=== PATIENT | male | born 1945 | race Caucasian/White ===

== ENCOUNTER 2023-03-07 14:30 | Inpatient (IN) | payer MEDICARE ==
[2023-03-07 15:17] LABS: BASO % 0.3 % (0.0-1.0); EOS % 0.1 % (0.0-3.0); HEMATOCRIT 39.5 % (42.0-52.0); HEMOGLOBIN 13.4 g/dl (13.5-17.5); LYMPH # 0.4 10^3/uL (1.5-5.0); LYMPH % 6.2 % (24.0-44.0); MEAN CORPUSCULAR HEMOGLOBIN 33.1 pg (27.0-33.0); MEAN CORPUSCULAR HGB CONC 33.9 g/dl (32.0-36.5); MEAN CORPUSCULAR VOLUME 97.5 fl (80.0-96.0); MONO # 0.6 10^3/uL (0.0-0.8); MONO % 8.7 % (2.0-8.0); NEUTROPHILS % 84.3 % (36.0-66.0); PLATELET COUNT, AUTOMATED 200 10^3/uL (150-450); RED BLOOD COUNT 4.05 10^6/uL (4.30-6.10); WHITE BLOOD COUNT 7.2 10^3/uL (4.0-10.0)
[2023-03-07] MEDS ORDERED: ISOVUE-370 76% 100ML VIAL As Ordered ONE (15:19)
[2023-03-07 15:25] VITALS: BP 141/67
[2023-03-07 15:46] LABS: CK-MB VALUE MASS < 1.0 NG/ML (<3.6); ETHYL ALCOHOL (ETHANOL) < 0.003 % (0.000-0.010)
[2023-03-07 15:48] LABS: ALBUMIN 3.5 G/DL (3.2-5.2); ALKALINE PHOSPHATASE 81 U/L (46-116); ALT/SGPT 16 U/L (7.0-40); AST/SGOT 19 U/L (<34); BILIRUBIN,DIRECT 0.3 MG/DL (<0.4); BILIRUBIN,TOTAL 0.7 MG/DL (0.3-1.2); BLOOD UREA NITROGEN 24 MG/DL (9-23); CALCIUM LEVEL 8.5 MG/DL (8.3-10.6); CARBON DIOXIDE LEVEL 28 MMOL/L (20-31); CHLORIDE LEVEL 105 MMOL/L (98-107); CPK CREATINE PHOSPHOKINASE 88 U/L (46-171); CREATININE FOR GFR 1.02 MG/DL (0.70-1.30); GLOMERULAR FILTRATION RATE > 60.0 (>42); GLUCOSE, FASTING 165 MG/DL (74-106); MB/CK RELATIVE INDEX 1.13 (< OR =4); SODIUM LEVEL 137 MMOL/L (136-145); TOTAL PROTEIN 6.4 G/DL (5.7-8.2)
[2023-03-07 15:49] LABS: RSV AMPLIFICATION NEGATIVE (NEGATIVE)
[2023-03-07 15:50] LABS: THYROID STIMULATING HORMONE 1.526 uIU/ML (0.55-4.78)
[2023-03-07] MEDS ORDERED: LIDOCAINE 2% 5ML JELLY UROJET TOP ONE (15:50)
[2023-03-07] MEDS ORDERED: ACETAMINOPHEN TAB 650MG DOSE (2X325MG) PO PRN (16:30)
[2023-03-07] MEDS ORDERED: PROMETHAZINE 25MG/ML 1ML VIAL IV PRN (16:30)
[2023-03-07] MEDS ORDERED: SENOKOT S TAB PO PRN (16:30)
[2023-03-07] MEDS ORDERED: MOM 30ML SUSPENSION UDC PO PRN (16:30)
[2023-03-07] MEDS ORDERED: MIRALAX *UNIT DOSE* 17GM PACKET PO PRN (16:30)
[2023-03-07 16:55] LABS: ABG HCO3 23.4 MMOL/L (22.0-26.0); ABG O2 SATURATION 91.5 % (95.0-99.0); ABG PARTIAL PRESSURE CO2 34.4 mmHg (35.0-45.0); ABG PARTIAL PRESSURE O2 59.8 mmHg (75.0-100.0); ABG STANDARD HCO3 24.3 MMOL/L. (22.0-26.0); ABG TOTAL CO2 24.4 MMOL/L (23.0-31.0)
[2023-03-07] MEDS ORDERED: LORazepam 2 MG/ML 1ML VIAL IV STA (17:42)
[2023-03-07] MEDS ORDERED: METF850T4 PO (18:27)
[2023-03-07] MEDS ORDERED: TEST200I14 IM (18:27)
[2023-03-07] MEDS ORDERED: ALLO100T PO (18:27)
[2023-03-07] MEDS ORDERED: LISI5TAB11 PO (18:27)
[2023-03-07] MEDS ORDERED: SITA50TAB PO (18:27)
[2023-03-07] MEDS ORDERED: METO1TAB32 PO (18:27)
[2023-03-07] MEDS ORDERED: SIMV20TA22 PO (18:27)
[2023-03-07] MEDS ORDERED: GLIP2.5T6 PO (18:27)
[2023-03-07] MEDS ORDERED: MAGN500T6 PO (18:27)
[2023-03-07] MEDS ORDERED: HYDR-3490 PO (18:29)
[2023-03-07] MEDS ORDERED: CHLO25TA PO (18:29)
[2023-03-07] MEDS ORDERED: HOME MED LIST COMPLETE! XX SCH (18:30)
[2023-03-07] MEDS ORDERED: LORazepam 2 MG TAB PO PRN (18:50)
[2023-03-07] MEDS ORDERED: ENOXAPARIN 40MG/0.4ML SYRINGE (J1650 PER 10MG) SC ONE (20:00)
[2023-03-07] MEDS: NIRMATRELVIR/RITONAVIR CO-PACK (EMERGENCY USE AUTH) PO SCH (21:00)
[2023-03-07 21:10] LABS: AMPHETAMINES LEVEL URINE NEGATIVE (NEGATIVE); BARBITURATES URINE NEGATIVE (NEGATIVE); BENZODIAZEPINES URINE NEGATIVE (NEGATIVE); CANNABINOIDS URINE NEGATIVE (NEGATIVE); COCAINE METABOLITE URINE NEGATIVE (NEGATIVE); METHADONE URINE NEGATIVE (NEGATIVE); OPIATES URINE NEGATIVE (NEGATIVE); PHENCYCLIDINE URINE NEGATIVE (NEGATIVE)
[2023-03-07 22:00] VITALS: BP 129/60
[2023-03-07] MEDS ORDERED: cefTRIAXone SOD 1 GM in D5W MINI-BAG PLUS 50 ML IV SCH (22:00)
[2023-03-07 22:41] VITALS: BP 129/60
[2023-03-07] MEDS: MULTIVITAMINS/MINERALS THERAP 1 TAB PO SCH (22:42)
[2023-03-07] MEDS: THIAMINE 100 MG TAB PO SCH (22:42)
[2023-03-07] MEDS: FOLIC ACID 1MG TAB PO SCH (22:42)
[2023-03-08 04:30] VITALS: BP 128/61
[2023-03-08 06:00] VITALS: BP 128/61
[2023-03-08 06:44] LABS: BASO % 0.4 % (0.0-1.0); EOS % 0.4 % (0.0-3.0); HEMATOCRIT 37.1 % (42.0-52.0); HEMOGLOBIN 12.8 g/dl (13.5-17.5); LYMPH # 0.8 10^3/uL (1.5-5.0); MEAN CORPUSCULAR HGB CONC 34.5 g/dl (32.0-36.5); MEAN CORPUSCULAR VOLUME 98.4 fl (80.0-96.0); MONO # 0.6 10^3/uL (0.0-0.8); MONO % 12.4 % (2.0-8.0); NEUTROPHILS # 3.6 10^3/uL (1.5-8.5); NEUTROPHILS % 71.2 % (36.0-66.0); RED BLOOD COUNT 3.77 10^6/uL (4.30-6.10); WHITE BLOOD COUNT 5.1 10^3/uL (4.0-10.0)
[2023-03-08 07:12] LABS: IRON (FE) 13 UG/DL (65-175); PERCENT SATURATION 5.1 % (19.7-50.0); TOTAL IRON BINDING CAPACITY 255 UG/DL (250-425)
[2023-03-08 07:18] LABS: HEMOGLOBIN A1c 6.8 % (4.0-6.0)
[2023-03-08 07:24] LABS: BLOOD UREA NITROGEN 22 MG/DL (9-23); CALCIUM LEVEL 8.6 MG/DL (8.3-10.6); CARBON DIOXIDE LEVEL 27 MMOL/L (20-31); CHLORIDE LEVEL 103 MMOL/L (98-107); CHOLESTEROL LEVEL 114 MG/DL (<200); CHOLESTEROL RISK RATIO 2.87 (<5); CREATININE FOR GFR 1.04 MG/DL (0.70-1.30); FOLATE 19.84 NG/ML (>5.4); GLOMERULAR FILTRATION RATE > 60.0 (>42); GLUCOSE, FASTING 105 MG/DL (74-106); HDL CHOLESTEROL 39.6 MG/DL (>40); LDL CHOLESTEROL 59.8 MG/DL (<100); NON-HDL-C 74.4 MG/DL; POTASSIUM SERUM 3.9 MMOL/L (3.5-5.1); SODIUM LEVEL 138 MMOL/L (136-145); THYROID STIMULATING HORMONE 1.855 uIU/ML (0.55-4.78); TRIGLYCERIDES LEVEL 73 MG/DL (<150); VITAMIN B12 LEVEL 173 PG/ML (211-911)
[2023-03-08 07:25] LABS: PLATELET COUNT, AUTOMATED 189 10^3/uL (150-450)
[2023-03-08] MEDS ORDERED: FOLI1TAB11 PO (08:58)
[2023-03-08] MEDS ORDERED: CIPR-250 PO (08:58)
[2023-03-08] MEDS ORDERED: THIA100TA PO (08:58)
[2023-03-08] MEDS ORDERED: ASPI81CH8 PO (08:58)
[2023-03-08] MEDS ORDERED: VITMTA PO (08:58)
[2023-03-08] MEDS ORDERED: NIRM1TAB6 PO (08:58)
[2023-03-08] MEDS ORDERED: ASPIRIN 81MG CHEW TABLET PO SCH (09:00)
[2023-03-08] MEDS ORDERED: ENOXAPARIN 40MG/0.4ML SYRINGE (J1650 PER 10MG) SC SCH (09:00)
[2023-03-08] MEDS: FOLIC ACID 1MG TAB PO SCH (09:11)
[2023-03-08] MEDS: THIAMINE 100 MG TAB PO SCH (09:11)
[2023-03-08] MEDS: MULTIVITAMINS/MINERALS THERAP 1 TAB PO SCH (09:11)
[2023-03-08] MEDS: NIRMATRELVIR/RITONAVIR CO-PACK (EMERGENCY USE AUTH) PO SCH (09:15)
== END 2023-03-08 11:40 | disposition home or self-care (01) | DRG 56 ==
LOC: EDBD 14:30 → M ED 14:30 → M ED INP 16:22 → ENRESERV 20:02 → M MSPAV 22:08
PROVIDERS: ADMIT General Practice; ATTEND General Practice
DX: G30.9 Alzheimer's disease, unspecified (principal); U07.1 COVID-19; F02.80 Dementia in other diseases classified elsewhere, unspecified severity, without behavioral disturbance, psychotic disturbance, mood disturbance, and anxiety; E11.9 Type 2 diabetes mellitus without complications; I10 Essential (primary) hypertension; G45.4 Transient global amnesia; M10.9 Gout, unspecified; Z79.82 Long term (current) use of aspirin; Z79.84 Long term (current) use of oral hypoglycemic drugs; Z79.899 Other long term (current) drug therapy